=== PATIENT | male | born 1965 | race Caucasian/White ===

== ENCOUNTER → 2019-12-14 | Outpatient (CLI) | payer OTHER ==
[~2019-12-14] VITALS: Ht 182.9 cm; Wt 89.8 kg
--- NOTE | 2019-12-16 16:07 | PATH ---
[facility] [place] [address] PATHOLOGY RPT PROCEDURE Name: GARFIELD BABB Room #: REG ELOY Deiys.#: [id number] Admission: 12/14/19 Date of : 61 Discharge: Report #: [id number] Path Case #: [id number] [facility] Accession Number: [id number] . 01 Material submitted: . PART A: cecum - CECAL POLYP PART B: colon - POLYP AT SIGMOID. Modifiers: sigmoid . 01 Clinical history: . Pre-op diagnosis: Reflux, screening Post-op diagnosis: Polyps, hemorrhoids . 02 Diagnosis: A. Polyp, cecal polyp, endoscopic biopsy: - Hyperplastic polyp. - Negative for dysplasia. . B. Polyp, at sigmoid, endoscopic biopsy: - Hyperplastic polyp. - Negative for dysplasia. . (IUV:lance; 12/16/2019) MBR 12/16/2019 1315 Local . 02 Electronically signed: . Tatum Alvarez MD, Pathologist NPI- [id number] . 01 Gross description: . A. The specimen is received in formalin, labeled "Garfield Babb, cecal polyp". Received are four segments of pale talbert soft tissue ranging in size from 0.3 to 0.6 cm in maximum dimensions. The specimen is submitted entirely in cassette A1. . B. The specimen is received in formalin, labeled "Garfield Babb, polyp at sigmoid". Received are two segments of pale talbert soft tissue ranging in size from 0.1 to 0.3 cm in maximum dimensions. The specimen is submitted entirely in cassette B1. (CAA; 12/15/2019) QAC/QAC 12/15/2019 1130 Local . 02 Pathologist provided ICD-10: K63.5, K63.5, K64.9 . 02 CPT . 282969, [id number] Specimen Comment: A courtesy copy of this report has been sent to [phone] [place] [address] PATHOLOGY RPT PROCEDURE Name: GARFIELD BABB Room #: REG [facility].Justine.#: [id number] Admission: 12/14/19 Date of : 61 Discharge: Report #: [id number] Path Case #: [id number] Specimen Comment: Report sent to Performed at: 01 [facility] [place] [address], [place] [id number] MD Bradley Dillon MD Phone: [phone] Performed at: [address] [id number] MD Tatum Alvarez MD Phone: [phone]
== END | disposition home or self-care (01) ==
LOC: GI 07:10
DX: Z12.11 Encounter for screening for malignant neoplasm of colon (principal); R12 Heartburn; K63.5 Polyp of colon; K64.8 Other hemorrhoids; K21.9 Gastro-esophageal reflux disease without esophagitis; Z90.49 Acquired absence of other specified parts of digestive tract; Z98.890 Other specified postprocedural states; Z79.899 Other long term (current) drug therapy; Z85.828 Personal history of other malignant neoplasm of skin
CPT/HCPCS: 62110; 62900